=== PATIENT | male | born 1965 | race African-American/Black ===

== ENCOUNTER 2020-01-03 02:43 | Inpatient (IN) ==
[2020-01-03] MEDS ORDERED: SODIUM CHLORIDE 0.9% 1,000 ML IV STA (03:25)
[2020-01-03] MEDS ORDERED: NOREPINEPHRINE 4 MG/4 ML VIAL IV ONE (04:18)
[2020-01-03] MEDS ORDERED: MIDAZOLAM 10 MG/2 ML VIAL ONE (04:20)
[2020-01-03] MEDS: NOREPINEPHRINE 8 MG in SODIUM CHLORIDE 0.9% 242 ML IV PRN ×2 (04:23→11:21)
[2020-01-03] MEDS ORDERED: MIDAZOLAM 10 MG/2 ML VIAL IV STA (04:31)
[2020-01-03] MEDS ORDERED: MIDAZOLAM 100 MG in SODIUM CHLORIDE 0.9% 80 ML IV PRN (04:31)
[2020-01-03 05:12] LABS: Basophils % 0.1 % (0.0-0.8); Eosinophils % 0.2 % (0.00-10.9); Immature Granulocytes % 3.8 %; Immature Granulocytes Absolute 0.69 #; Lymphocytes # 2.7 10*3/uL (1.4-4.0); Lymphocytes % 14.8 % (21.2-54.2); Mean Corpuscular HGB Conc 22.9 GM/DL (32-36); Mean Corpuscular Volume 61.9 FL (87-102); Monocytes % 8.3 % (1.7-12.7); NRBC # 0.09 10*3/uL; Neutrophils % 72.8 % (38.7-73.9); Platelet Count 264 T/CUMM (130-400); Red Blood Count 1.13 MC/CUMM (3.8-5.5); Red Cell Distribution Width 33.2 % (9.3-17.3); White Blood Count 18.1 T/CUMM (4-12)
[2020-01-03 05:14] LABS: INR 1.4; PT Patient Result 14.6 SECS (9.8-11.9)
[2020-01-03 05:26] LABS: Apearance,Urine Slightly Hazy (Clear); Bacteria,Urine Occasional /HPF (Few); Bilirubin,Urine Negative (Negative); Blood, Urine Moderate mg/dL (Negative); Glucose,Urine (UA) Negative (Negative); Hyaline Casts,Urine 14 /LPF (0-3); Ketones,Urine 20 mg/dL (Negative); Mucus,Urine Occasional /LPF (Occasional); Nitrite,Urine Negative (Negative); Protein,Urine 100 MG/DL; RBC,Urine 1 /HPF (0-4); Urine Color Yellow (Yellow); Urine Specific Gravity 1.011 (1.001-1.035); Urine Urobilinogen < 2.0 EU/DL (0.2-1.0); WBC,Urine 3 /HPF (0-6)
[2020-01-03 05:33] LABS: Barbiturates Screen,Urine Negative (Negative); Benzodiazepines Screen,Urine Negative (Negative); Cannabinoid Screen,Urine Positive (Negative); Opiate Screen,Urine Negative (Negative); Phencyclidine Screen,Urine Negative (Negative)
[2020-01-03 05:34] LABS: Hemoglobin 1.6 GM/DL (14.0-18.0)
[2020-01-03] MEDS ORDERED: cefTRIAXone 1,000 MG in SODIUM CHLORIDE 0.9% 100 ML IV STA (05:37)
[2020-01-03 05:41] LABS: Alanine Aminotransferase 35 U/L (16-61); Alkaline Phosphatase 81 U/L (45-117); Aspartate Amino Transferase 80 U/L (0-37); Bilirubin,Total < 0.39 MG/DL (0.2-1.0); Blood Urea Nitrogen 16 MG/DL (7-18); Calcium 9.2 MG/DL (8.5-10.1); Estimated Glom Filtration Rate 47 ML/MIN; Glucose 90 MG/DL (74-106); Osmolality,Calculated 281.3 MOS/KG (273-304); Total Protein 6.4 G/DL (6.4-8.3)
[2020-01-03] MEDS ORDERED: ROCURONIUM 100 MG/10 ML VIAL IV ONE (05:45)
[2020-01-03] MEDS ORDERED: VANCOMYCIN INJ 1,000 MG in SODIUM CHLORIDE 0.9% 250 ML IV STA ×2 (05:55→05:58)
[2020-01-03] MEDS ORDERED: PIPERACILLIN/TAZOBACTAM 3,375 MG in SODIUM CHLORIDE 0.9% 100 ML IV STA (05:55)
[2020-01-03] MEDS ORDERED: SODIUM BICARBONATE 50 MEQ/50 ML VIAL IV STA ×2 (05:57)
[2020-01-03] MEDS ORDERED: ALBUTEROL 2.5 MG/3 ML NEB RESP TX PRN (06:04)
[2020-01-03 06:11] LABS: Allen Test Positive; Pt O2 Delivery Device Ventilator
[2020-01-03 06:12] LABS: ABG HCO3 6.8 MMOL/L (20-26); ABG Oxygen Saturation 99.2 % (95-100); ABG PCO2 24.7 MM HG (35-48); ABG PO2 472.7 MM HG (80-95); ABG TCO2 7.6 MMOL/L (23-27)
[2020-01-03] MEDS ORDERED: SODIUM CHLORIDE 0.9% 1,000 ML IV PRN ×2 (08:07→11:46)
[2020-01-03] MEDS: SODIUM BICARB INJ 150 MEQ in DEXTROSE 5% 850 ML IV SCH ×2 (08:42→17:10)
[2020-01-03] MEDS: PANTOPRAZOLE 40 MG VIAL IV SCH ×2 (08:50→18:27)
[2020-01-03 15:08] LABS: Hematocrit 21.2 VOL% (42.0-52.0); Hemoglobin 6.6 GM/DL (14.0-18.0)
[2020-01-03 15:52] LABS: Calcium 8.2 MG/DL (8.5-10.1); Osmolality,Calculated 288.5 MOS/KG (273-304)
[2020-01-03 17:42] LABS: Hematocrit 32.5 VOL% (42.0-52.0); Hemoglobin 10.7 GM/DL (14.0-18.0)
[2020-01-03 23:54] LABS: Hematocrit 21.9 VOL% (42.0-52.0); Hemoglobin 7.2 GM/DL (14.0-18.0)
[2020-01-04] MEDS: SODIUM BICARB INJ 150 MEQ in DEXTROSE 5% 850 ML IV SCH ×2 (01:02→07:15)
[2020-01-04 04:41] LABS: Allen Test Positive; Pt O2 Delivery Device Ventilator
[2020-01-04 04:42] LABS: ABG HCO3 32.8 MMOL/L (20-26); ABG Oxygen Saturation 99.9 % (95-100); ABG PCO2 34.6 MM HG (35-48); ABG TCO2 29.6 MMOL/L (23-27)
[2020-01-04 06:13] LABS: Basophils % 0.1 % (0.0-0.8); Hematocrit 22.3 VOL% (42.0-52.0); Hemoglobin 7.5 GM/DL (14.0-18.0); Immature Granulocytes % 1.2 %; Immature Granulocytes Absolute 0.28 #; Lymphocytes # 1.3 10*3/uL (1.4-4.0); Lymphocytes % 5.8 % (21.2-54.2); Mean Corpuscular HGB Conc 33.6 GM/DL (32-36); Mean Corpuscular Volume 76.1 FL (87-102); Monocytes % 8.1 % (1.7-12.7); NRBC # 0.17 10*3/uL; Neutrophils % 84.8 % (38.7-73.9); Platelet Count 252 T/CUMM (130-400); Red Blood Count 2.93 MC/CUMM (3.8-5.5); White Blood Count 22.7 T/CUMM (4-12)
[2020-01-04 06:18] LABS: INR 1.2; PT Patient Result 12.8 SECS (9.8-11.9)
[2020-01-04 06:32] LABS: Albumin 2.7 G/DL (3.4-5.0); Bilirubin,Total 0.7 MG/DL (0.2-1.0); Osmolality,Calculated 278.5 MOS/KG (273-304); Total Protein 6.2 G/DL (6.4-8.3)
[2020-01-04 06:34] LABS: Hypochromasia 2+; Platelet Estimate Adequate
[2020-01-04] MEDS: PANTOPRAZOLE 40 MG VIAL IV SCH ×2 (07:20→18:05)
[2020-01-04] MEDS: POTASSIUM CHLORIDE RIDER 10 MEQ in PREMIX 1 EACH IV PRN ×3 (09:11→13:40)
[2020-01-04 10:23] LABS: ABG Base Excess 10.5 MMOL/L (-2.5-2.5); ABG HCO3 32.9 MMOL/L (20-26); ABG Oxygen Saturation 95.6 % (95-100); ABG PCO2 34.8 MM HG (35-48); ABG PO2 75.7 MM HG (80-95)
[2020-01-04 10:24] LABS: ABG PH 7.594 (7.35-7.45)
[2020-01-04] MEDS: DEXTROSE 5% NACL 0.45% 1,000 ML IV SCH ×2 (11:38→23:19)
[2020-01-05] MEDS: DEXTROSE 5% NACL 0.45% 1,000 ML IV SCH ×2 (00:01→14:03)
[2020-01-05 03:10] LABS: Allen Test Positive
[2020-01-05 03:11] LABS: ABG Base Excess 4.3 MMOL/L (-2.5-2.5); ABG HCO3 28.1 MMOL/L (20-26); ABG Oxygen Saturation 83.8 % (95-100); ABG PCO2 28.2 MM HG (35-48); ABG PH 7.574 (7.35-7.45); ABG PO2 45.7 MM HG (80-95); ABG TCO2 24.3 MMOL/L (23-27)
[2020-01-05 04:19] LABS: Basophils # 0.1 10*3/uL (0.0-0.2); Basophils % 0.2 % (0.0-0.8); Hematocrit 24.6 VOL% (42.0-52.0); Hemoglobin 7.9 GM/DL (14.0-18.0); Immature Granulocytes % 1.1 %; Immature Granulocytes Absolute 0.28 #; Lymphocytes # 1.6 10*3/uL (1.4-4.0); Lymphocytes % 6.4 % (21.2-54.2); Mean Corpuscular HGB Conc 32.1 GM/DL (32-36); Mean Corpuscular Volume 77.1 FL (87-102); Monocytes % 10.4 % (1.7-12.7); NRBC # 0.11 10*3/uL; Neutrophils % 81.9 % (38.7-73.9); Platelet Count 376 T/CUMM (130-400); Red Blood Count 3.19 MC/CUMM (3.8-5.5); White Blood Count 24.6 T/CUMM (4-12)
[2020-01-05 04:46] LABS: Calcium 8.2 MG/DL (8.5-10.1); Osmolality,Calculated 268.8 MOS/KG (273-304)
[2020-01-05 05:12] LABS: Lymphocytes 6 % (20-55); Total Cells Counted 100
[2020-01-05 05:13] LABS: Elliptocytes 1+; Hypochromasia 3+; Ovalocytes 2+; Platelet Estimate Normal; Segmented Neutrophils 86 % (50-85); Target Cells 2+
[2020-01-05 05:15] LABS: Anisocytosis 2+; Microcytosis 2+
[2020-01-05] MEDS ORDERED: POTASSIUM CHLORIDE RIDER 10 MEQ in PREMIX 1 EACH IV PRN (05:25)
[2020-01-05] MEDS: POTASSIUM CHLORIDE RIDER 20 MEQ in PREMIX 1 EACH IV PRN ×3 (05:43→07:03)
[2020-01-05] MEDS: PANTOPRAZOLE 40 MG VIAL IV SCH ×2 (05:47→18:00)
[2020-01-05] MEDS ORDERED: AZITHROMYCIN 250 MG TABLET PO ONE (07:44)
[2020-01-05] MEDS: POTASSIUM CHLORIDE 20 MEQ TABLET PO SCH ×3 (10:13→21:27)
[2020-01-05] MEDS: cefTRIAXone 1,000 MG in SYRINGE 1 EACH IV SCH (10:15)
[2020-01-05] MEDS: amLODIPine 5 MG TABLET PO SCH (10:17)
[2020-01-05] MEDS: TAMSULOSIN 0.4 MG CAPSULE PO SCH ×2 (10:18→21:28)
[2020-01-05] MEDS ORDERED: CLORAZEPATE 3.75 MG TABLET PO SCH (10:30)
[2020-01-05] MEDS ORDERED: HALOPERIDOL 5 MG TABLET PO PRN (10:31)
[2020-01-05] MEDS: chlordiazePOXIDE 10 MG CAPSULE PO SCH ×2 (11:39→18:00)
[2020-01-05] MEDS: THIAMINE 100 MG TABLET PO SCH (14:43)
[2020-01-05 15:25] LABS: Folate 14.6 NG/ML (5.4-24.0)
[2020-01-05] MEDS: FOLIC ACID 1 MG TABLET PO SCH (21:28)
[2020-01-06] MEDS: POTASSIUM CHLORIDE 20 MEQ TABLET PO SCH (02:41)
[2020-01-06] MEDS: chlordiazePOXIDE 10 MG CAPSULE PO SCH ×3 (02:41→18:04)
[2020-01-06 05:10] LABS: Basophils % 0.1 % (0.0-0.8); Eosinophils % 0.1 % (0.00-10.9); Hematocrit 24.2 VOL% (42.0-52.0); Hemoglobin 7.8 GM/DL (14.0-18.0); Immature Granulocytes % 1.1 %; Immature Granulocytes Absolute 0.25 #; Lymphocytes # 1.3 10*3/uL (1.4-4.0); Lymphocytes % 5.7 % (21.2-54.2); Mean Corpuscular HGB Conc 32.2 GM/DL (32-36); Mean Corpuscular Volume 77.1 FL (87-102); Mean Platelet Volume 9.2 FL (9.6-12.0); Monocytes % 10.1 % (1.7-12.7); NRBC # 0.11 10*3/uL; Neutrophils % 82.9 % (38.7-73.9); Platelet Count 416 T/CUMM (130-400); Red Blood Count 3.14 MC/CUMM (3.8-5.5); White Blood Count 21.8 T/CUMM (4-12)
[2020-01-06 05:29] LABS: Albumin 2.1 G/DL (3.4-5.0); Bilirubin,Total 0.5 MG/DL (0.2-1.0); Osmolality,Calculated 270.8 MOS/KG (273-304); Total Protein 5.7 G/DL (6.4-8.3)
[2020-01-06 05:31] LABS: Hypochromasia 1+; Lymphocytes 1 % (20-55); Microcytosis Slight; Nucleated Red Blood Cells 1 (0-5); Platelet Estimate Adequate; Segmented Neutrophils 87 % (50-85); Total Cells Counted 100
[2020-01-06] MEDS: PANTOPRAZOLE 40 MG VIAL IV SCH ×2 (05:51→18:00)
[2020-01-06] MEDS: DEXTROSE 5% NACL 0.45% 1,000 ML IV SCH ×3 (05:54→23:25)
[2020-01-06] MEDS: cefTRIAXone 1,000 MG in SYRINGE 1 EACH IV SCH (08:41)
[2020-01-06] MEDS: amLODIPine 5 MG TABLET PO SCH (08:41)
[2020-01-06] MEDS: THIAMINE 100 MG TABLET PO SCH (08:41)
[2020-01-06] MEDS: TAMSULOSIN 0.4 MG CAPSULE PO SCH ×2 (08:41→23:02)
[2020-01-06] MEDS ORDERED: AZITHROMYCIN 250 MG TABLET PO SCH (09:00)
[2020-01-06] MEDS ORDERED: FUROSEMIDE 40 MG/4 ML VIAL IV ONE (14:45)
[2020-01-06] MEDS: PIPERACILLIN/TAZOBACTAM 3,375 MG in SODIUM CHLORIDE 0.9% 100 ML IV SCH ×2 (15:30→23:39)
[2020-01-06] MEDS: VANCOMYCIN INJ 1,000 MG in SODIUM CHLORIDE 0.9% 250 ML IV SCH (20:41)
[2020-01-06] MEDS: FOLIC ACID 1 MG TABLET PO SCH (23:02)
[2020-01-06] MEDS ORDERED: ACETAMINOPHEN 325 MG TABLET PO PRN (23:11)
[2020-01-07] MEDS: chlordiazePOXIDE 10 MG CAPSULE PO SCH ×3 (03:23→21:49)
[2020-01-07] MEDS: DEXTROSE 5% NACL 0.45% 1,000 ML IV SCH ×2 (05:51→23:01)
[2020-01-07 06:59] LABS: Basophils # 0.1 10*3/uL (0.0-0.2); Basophils % 0.2 % (0.0-0.8); Eosinophils # 0.3 10*3/uL (0.0-0.87); Eosinophils % 1.2 % (0.00-10.9); Hematocrit 25.9 VOL% (42.0-52.0); Lymphocytes # 1.6 10*3/uL (1.4-4.0); Lymphocytes % 7.6 % (21.2-54.2); Mean Corpuscular HGB Conc 30.9 GM/DL (32-36); Mean Platelet Volume 9.4 FL (9.6-12.0); Monocytes % 12.5 % (1.7-12.7); NRBC # 0.12 10*3/uL; Neutrophils % 77.5 % (38.7-73.9); Platelet Count 474 T/CUMM (130-400); Red Blood Count 3.28 MC/CUMM (3.8-5.5); White Blood Count 20.7 T/CUMM (4-12)
[2020-01-07 07:30] LABS: Calcium 7.6 MG/DL (8.5-10.1); Osmolality,Calculated 272.7 MOS/KG (273-304)
[2020-01-07] MEDS: PANTOPRAZOLE 40 MG VIAL IV SCH ×2 (08:14→18:10)
[2020-01-07] MEDS: LACTATED RINGERS 1,000 ML IV SCH (08:20)
[2020-01-07] MEDS: amLODIPine 5 MG TABLET PO SCH (09:57)
[2020-01-07] MEDS: THIAMINE 100 MG TABLET PO SCH (09:57)
[2020-01-07] MEDS: TAMSULOSIN 0.4 MG CAPSULE PO SCH ×2 (09:57→21:49)
[2020-01-07] MEDS: PIPERACILLIN/TAZOBACTAM 3,375 MG in SODIUM CHLORIDE 0.9% 100 ML IV SCH ×2 (10:00→16:09)
[2020-01-07] MEDS: VANCOMYCIN INJ 1,000 MG in SODIUM CHLORIDE 0.9% 250 ML IV SCH ×2 (10:00→21:53)
[2020-01-07] MEDS: POTASSIUM CHLORIDE 20 MEQ TABLET PO PRN ×3 (10:02→16:39)
[2020-01-07 12:50] LABS: Eosinophils 1 % (0-10); Hypochromasia 3+; Lymphocytes 9 % (20-55); Nucleated Red Blood Cells 1 (0-5); Segmented Neutrophils 78 % (50-85); Total Cells Counted 100
[2020-01-07 12:51] LABS: Elliptocytes 1+; Microcytosis 2+; Platelet Estimate Adequate; Tear Drop Cells Few
[2020-01-07] MEDS ORDERED: LEVALBUTEROL 0.31 MG/3 ML NEB RESP TX ONE (19:50)
[2020-01-07] MEDS ORDERED: LEVALBUTEROL 1.25 MG/3 ML NEB RESP TX ONE (19:52)
[2020-01-07 20:14] LABS: ABG Base Excess -1.9 MMOL/L (-2.5-2.5); ABG HCO3 22.6 MMOL/L (20-26); ABG Oxygen Saturation 87.1 % (95-100); ABG PCO2 31.7 MM HG (35-48); ABG PH 7.441 (7.35-7.45); ABG PO2 53.9 MM HG (80-95); Allen Test Positive
[2020-01-07 20:22] LABS: Basophils % 0.1 % (0.0-0.8); Eosinophils # 0.1 10*3/uL (0.0-0.87); Eosinophils % 0.4 % (0.00-10.9); Hematocrit 26.4 VOL% (42.0-52.0); Hemoglobin 8.4 GM/DL (14.0-18.0); Immature Granulocytes % 1.1 %; Immature Granulocytes Absolute 0.31 #; Lymphocytes # 0.8 10*3/uL (1.4-4.0); Lymphocytes % 2.8 % (21.2-54.2); Mean Corpuscular HGB Conc 31.8 GM/DL (32-36); Mean Corpuscular Volume 78.3 FL (87-102); Mean Platelet Volume 9.5 FL (9.6-12.0); Monocytes % 10.7 % (1.7-12.7); NRBC # 0.14 10*3/uL; Neutrophils % 84.9 % (38.7-73.9); Platelet Count 517 T/CUMM (130-400); Red Blood Count 3.37 MC/CUMM (3.8-5.5); White Blood Count 28.2 T/CUMM (4-12)
[2020-01-07 20:50] LABS: Hypersegmented Neutrophil SLIGHT; Hypochromasia 2+; Lymphocytes 3 % (20-55); Segmented Neutrophils 91 % (50-85); Target Cells Few; Total Cells Counted 100
[2020-01-07 20:51] LABS: Macrocytosis 1+; Microcytosis 1+; Tear Drop Cells Few
[2020-01-07 21:24] LABS: Calcium 7.7 MG/DL (8.5-10.1); Osmolality,Calculated 276.7 MOS/KG (273-304)
[2020-01-07] MEDS: FOLIC ACID 1 MG TABLET PO SCH (21:49)
[2020-01-08] MEDS: PIPERACILLIN/TAZOBACTAM 3,375 MG in SODIUM CHLORIDE 0.9% 100 ML IV SCH ×3 (00:30→17:40)
[2020-01-08] MEDS: chlordiazePOXIDE 10 MG CAPSULE PO SCH ×2 (04:17→10:18)
[2020-01-08] MEDS: PANTOPRAZOLE 40 MG VIAL IV SCH ×2 (05:51→17:40)
[2020-01-08 08:31] LABS: Basophils # 0.1 10*3/uL (0.0-0.2); Basophils % 0.2 % (0.0-0.8); Eosinophils # 0.2 10*3/uL (0.0-0.87); Eosinophils % 0.7 % (0.00-10.9); Hematocrit 25.6 VOL% (42.0-52.0); Hemoglobin 8.3 GM/DL (14.0-18.0); Immature Granulocytes Absolute 0.27 #; Lymphocytes # 0.9 10*3/uL (1.4-4.0); Lymphocytes % 3.1 % (21.2-54.2); Mean Corpuscular HGB Conc 32.4 GM/DL (32-36); Mean Corpuscular Volume 76.4 FL (87-102); Mean Platelet Volume 9.4 FL (9.6-12.0); Monocytes % 10.2 % (1.7-12.7); NRBC # 0.09 10*3/uL; Neutrophils % 84.8 % (38.7-73.9); Platelet Count 493 T/CUMM (130-400); Red Blood Count 3.35 MC/CUMM (3.8-5.5)
[2020-01-08 09:02] LABS: Albumin 1.8 G/DL (3.4-5.0); Bilirubin,Total 0.4 MG/DL (0.2-1.0); Calcium 7.9 MG/DL (8.5-10.1); Osmolality,Calculated 274.5 MOS/KG (273-304)
[2020-01-08] MEDS: FUROSEMIDE 40 MG/4 ML VIAL IV SCH (09:26)
[2020-01-08] MEDS: TAMSULOSIN 0.4 MG CAPSULE PO SCH (10:17)
[2020-01-08] MEDS: amLODIPine 5 MG TABLET PO SCH (10:17)
[2020-01-08] MEDS: THIAMINE 100 MG TABLET PO SCH (10:18)
[2020-01-08] MEDS: VANCOMYCIN INJ 1,000 MG in SODIUM CHLORIDE 0.9% 250 ML IV SCH (10:22)
[2020-01-08 14:05] LABS: Total Protein 6.6 G/DL (6.4-8.3)
[2020-01-08 14:12] LABS: Lymphocytes 5 % (20-55); Segmented Neutrophils 84 % (50-85); Total Cells Counted 100
[2020-01-08 14:13] LABS: Burr Cells Few; Hypochromasia 4+; Microcytosis 3+; Platelet Estimate Increased; Polychromasia Slight; Target Cells Few
[2020-01-08] MEDS ORDERED: MORPHINE 4 MG/1 ML VIAL IV PRN (17:24)
[2020-01-08] MEDS ORDERED: ETOMIDATE 20 MG/10 ML VIAL IV ONE ×2 (18:08→18:14)
[2020-01-08] MEDS ORDERED: SUCCINYLCHOLINE 200 MG/10 ML VIAL ONE (18:09)
[2020-01-08] MEDS ORDERED: SUCCINYLCHOLINE 200 MG/10 ML VIAL IV ONE (18:15)
[2020-01-08] MEDS: MIDAZOLAM 100 MG in SODIUM CHLORIDE 0.9% 80 ML IV PRN (19:04)
[2020-01-08] MEDS: fentaNYL INJ 1,250 MCG in SODIUM CHLORIDE 0.9% 225 ML IV PRN (19:04)
[2020-01-08 19:37] LABS: ABG Base Excess -0.1 MMOL/L (-2.5-2.5); ABG HCO3 24.4 MMOL/L (20-26); ABG Oxygen Saturation 98.7 % (95-100); ABG PH 7.414 (7.35-7.45); ABG TCO2 25.6 MMOL/L (23-27); Allen Test Positive; Pt O2 Delivery Device Ventilator
[2020-01-08] MEDS ORDERED: FUROSEMIDE 40 MG/4 ML VIAL IV ONE (21:00)
[2020-01-08] MEDS: FOLIC ACID 1 MG TABLET PO SCH (21:25)
[2020-01-08] MEDS: VANCOMYCIN INJ 1,250 MG in SODIUM CHLORIDE 0.9% 250 ML IV SCH (21:26)
[2020-01-09] MEDS: PIPERACILLIN/TAZOBACTAM 3,375 MG in SODIUM CHLORIDE 0.9% 100 ML IV SCH ×3 (01:25→18:21)
[2020-01-09 04:45] LABS: ABG Base Excess 2.7 MMOL/L (-2.5-2.5); ABG HCO3 26.8 MMOL/L (20-26); ABG Oxygen Saturation 99.9 % (95-100); ABG TCO2 23.5 MMOL/L (23-27); Allen Test Positive; Pt O2 Delivery Device Ventilator
[2020-01-09 05:06] LABS: Basophils # 0.1 10*3/uL (0.0-0.2); Basophils % 0.2 % (0.0-0.8); Eosinophils # 0.7 10*3/uL (0.0-0.87); Eosinophils % 3.5 % (0.00-10.9); Hematocrit 24.5 VOL% (42.0-52.0); Hemoglobin 7.7 GM/DL (14.0-18.0); Immature Granulocytes % 0.8 %; Immature Granulocytes Absolute 0.17 #; Lymphocytes # 1.1 10*3/uL (1.4-4.0); Lymphocytes % 5.2 % (21.2-54.2); Mean Corpuscular HGB Conc 31.4 GM/DL (32-36); Mean Corpuscular Volume 77.5 FL (87-102); Mean Platelet Volume 9.5 FL (9.6-12.0); Monocytes % 7.9 % (1.7-12.7); NRBC # 0.06 10*3/uL; Neutrophils % 82.4 % (38.7-73.9); Platelet Count 490 T/CUMM (130-400); Red Blood Count 3.16 MC/CUMM (3.8-5.5); White Blood Count 21.1 T/CUMM (4-12)
[2020-01-09 05:25] LABS: Band Neutrophils 1 % (0-10); Eosinophils 3 % (0-10); Hypersegmented Neutrophil SLIGHT; Hypochromasia 1+; Lymphocytes 2 % (20-55); Segmented Neutrophils 82 % (50-85); Total Cells Counted 100
[2020-01-09 05:26] LABS: Acanthocytes Few; Microcytosis 2+; Polychromasia Slight
[2020-01-09 05:27] LABS: Anisocytosis 2+; Platelet Estimate Increased
[2020-01-09 05:37] LABS: Albumin 1.7 G/DL (3.4-5.0); Bilirubin,Total 0.6 MG/DL (0.2-1.0); Calcium 8.4 MG/DL (8.5-10.1); Osmolality,Calculated 279.3 MOS/KG (273-304); Total Protein 6.3 G/DL (6.4-8.3)
[2020-01-09] MEDS: PANTOPRAZOLE 40 MG VIAL IV SCH ×2 (05:40→18:30)
[2020-01-09] MEDS: POTASSIUM CHLORIDE 20 MEQ TABLET PO PRN (06:51)
[2020-01-09] MEDS: FUROSEMIDE 40 MG/4 ML VIAL IV SCH (08:23)
[2020-01-09] MEDS: THIAMINE 100 MG TABLET PO SCH (08:23)
[2020-01-09 10:38] LABS: Osmolality,Calculated 279.3 MOS/KG (273-304)
[2020-01-09] MEDS: VANCOMYCIN INJ 1,250 MG in SODIUM CHLORIDE 0.9% 250 ML IV SCH ×2 (11:17→22:50)
[2020-01-09] MEDS: POTASSIUM CHLORIDE 20 MEQ/15 ML UDCUP PO PRN ×3 (14:30→18:30)
[2020-01-09] MEDS: FOLIC ACID 1 MG TABLET PO SCH (23:12)
[2020-01-10] MEDS: PIPERACILLIN/TAZOBACTAM 3,375 MG in SODIUM CHLORIDE 0.9% 100 ML IV SCH ×3 (02:46→19:29)
[2020-01-10 04:18] LABS: ABG Base Excess 3.9 MMOL/L (-2.5-2.5); ABG HCO3 27.9 MMOL/L (20-26); ABG Oxygen Saturation 98.7 % (95-100); ABG PCO2 41.5 MM HG (35-48); ABG PH 7.442 (7.35-7.45); ABG TCO2 26.6 MMOL/L (23-27); Allen Test Positive; Pt O2 Delivery Device Ventilator
[2020-01-10] MEDS: POTASSIUM CHLORIDE 20 MEQ/15 ML UDCUP PO PRN ×4 (05:29→18:30)
[2020-01-10 05:49] LABS: Calcium 9.3 MG/DL (8.5-10.1)
[2020-01-10] MEDS: PANTOPRAZOLE 40 MG VIAL IV SCH ×2 (05:50→19:30)
[2020-01-10 05:56] LABS: Immunoglobulin A (Chem) 253 MG/DL (70-400); Immunoglobulin G (Chem) 808 MG/DL (700-1600); Immunoglobulin M (Chem) 38 MG/DL (40-230); Total Protein (Chem) 6.6 G/DL (6.4-8.3)
[2020-01-10] MEDS: MIDAZOLAM 100 MG in SODIUM CHLORIDE 0.9% 80 ML IV PRN (06:31)
[2020-01-10 07:42] LABS: Basophils # 0.1 10*3/uL (0.0-0.2); Basophils % 0.3 % (0.0-0.8); Eosinophils % 5.7 % (0.00-10.9); Hematocrit 23.8 VOL% (42.0-52.0); Hemoglobin 7.2 GM/DL (14.0-18.0); Immature Granulocytes % 0.6 %; Immature Granulocytes Absolute 0.11 #; Lymphocytes % 5.6 % (21.2-54.2); Mean Corpuscular HGB Conc 30.3 GM/DL (32-36); Mean Corpuscular Volume 79.9 FL (87-102); Mean Platelet Volume 9.8 FL (9.6-12.0); Monocytes % 9.5 % (1.7-12.7); NRBC # 0.03 10*3/uL; Neutrophils % 78.3 % (38.7-73.9); Platelet Count 464 T/CUMM (130-400); Red Blood Count 2.98 MC/CUMM (3.8-5.5); White Blood Count 17.3 T/CUMM (4-12)
[2020-01-10 07:57] LABS: Albumin 1.7 G/DL (3.4-5.0); Bilirubin,Total 0.4 MG/DL (0.2-1.0); Calcium 9.3 MG/DL (8.5-10.1); Osmolality,Calculated 284.3 MOS/KG (273-304); Total Protein 6.5 G/DL (6.4-8.3)
[2020-01-10 08:01] LABS: Hypochromasia 2+; Microcytosis Slight; Platelet Estimate Increased
[2020-01-10 08:55] LABS: Albumin (SPE) Rel % 45.8 %; Alpha 1 (SPE) 0.5 G/DL (0.1-0.4); Alpha 1 (SPE) Rel % 7.6 %; Alpha 2 (SPE) 1.4 G/DL (0.4-1.0); Alpha 2 (SPE) Rel % 20.7 %; Beta (SPE) Rel % 14.5 %; Gamma (SPE) 0.8 G/DL (0.7-1.7)
[2020-01-10 08:58] LABS: Gamma (SPE) Rel % 11.4 %
[2020-01-10] MEDS: THIAMINE 100 MG TABLET PO SCH (09:25)
[2020-01-10] MEDS: FUROSEMIDE 40 MG/4 ML VIAL IV SCH (09:26)
[2020-01-10] MEDS ORDERED: HEPARIN 5,000 UNIT/1 ML VIAL ONE (11:52)
[2020-01-10] MEDS: fentaNYL INJ 1,250 MCG in SODIUM CHLORIDE 0.9% 225 ML IV PRN (14:01)
[2020-01-10] MEDS ORDERED: VANCOMYCIN INJ 1,250 MG in SODIUM CHLORIDE 0.9% 250 ML IV SCH (16:00)
[2020-01-10] MEDS: VANCOMYCIN INJ 1,250 MG in SODIUM CHLORIDE 0.9% 250 ML IV SCH (20:01)
[2020-01-10] MEDS: FOLIC ACID 1 MG TABLET PO SCH (21:50)
[2020-01-11] MEDS: PIPERACILLIN/TAZOBACTAM 3,375 MG in SODIUM CHLORIDE 0.9% 100 ML IV SCH (02:42)
[2020-01-11 03:27] LABS: ABG Base Excess 4.9 MMOL/L (-2.5-2.5); ABG HCO3 28.9 MMOL/L (20-26); ABG Oxygen Saturation 99.5 % (95-100); ABG PCO2 44.3 MM HG (35-48); ABG PH 7.433 (7.35-7.45); ABG TCO2 27.8 MMOL/L (23-27); Allen Test Positive; Pt O2 Delivery Device Ventilator
[2020-01-11 04:27] LABS: Basophils # 0.1 10*3/uL (0.0-0.2); Basophils % 0.4 % (0.0-0.8); Eosinophils # 0.9 10*3/uL (0.0-0.87); Eosinophils % 6.4 % (0.00-10.9); Hematocrit 23.5 VOL% (42.0-52.0); Hemoglobin 7.1 GM/DL (14.0-18.0); Immature Granulocytes % 0.7 %; Lymphocytes % 7.3 % (21.2-54.2); Mean Corpuscular HGB Conc 30.2 GM/DL (32-36); Mean Corpuscular Volume 80.2 FL (87-102); Monocytes % 10.9 % (1.7-12.7); NRBC # 0.02 10*3/uL; Neutrophils % 74.3 % (38.7-73.9); Platelet Count 391 T/CUMM (130-400); Red Blood Count 2.93 MC/CUMM (3.8-5.5); White Blood Count 13.9 T/CUMM (4-12)
[2020-01-11 04:44] LABS: Hypochromasia 2+
[2020-01-11 04:45] LABS: Platelet Estimate Adequate
[2020-01-11 04:46] LABS: Microcytosis Slight
[2020-01-11 04:48] LABS: Albumin 1.7 G/DL (3.4-5.0); Bilirubin,Total 1.2 MG/DL (0.2-1.0); Calcium 9.7 MG/DL (8.5-10.1); Osmolality,Calculated 292.7 MOS/KG (273-304); Total Protein 6.7 G/DL (6.4-8.3)
[2020-01-11] MEDS: PANTOPRAZOLE 40 MG VIAL IV SCH ×2 (05:35→18:24)
[2020-01-11] MEDS ORDERED: LACTATED RINGERS 1,000 ML IV SCH (08:00)
[2020-01-11] MEDS: FUROSEMIDE 40 MG/4 ML VIAL IV SCH (09:18)
[2020-01-11] MEDS: THIAMINE 100 MG TABLET PO SCH (09:18)
[2020-01-11] MEDS: MEROPENEM 500 MG in SODIUM CHLORIDE 0.9% 100 ML IV SCH ×2 (09:41→16:06)
[2020-01-11] MEDS: fentaNYL INJ 1,250 MCG in SODIUM CHLORIDE 0.9% 225 ML IV PRN (11:51)
[2020-01-11] MEDS: FOLIC ACID 1 MG TABLET PO SCH (20:18)
[2020-01-11] MEDS: MIDAZOLAM 100 MG in SODIUM CHLORIDE 0.9% 80 ML IV PRN (23:17)
[2020-01-12] MEDS: fentaNYL INJ 1,250 MCG in SODIUM CHLORIDE 0.9% 225 ML IV PRN (01:16)
[2020-01-12] MEDS: MEROPENEM 500 MG in SODIUM CHLORIDE 0.9% 100 ML IV SCH ×3 (01:21→17:31)
[2020-01-12 04:33] LABS: ABG Base Excess 6.7 MMOL/L (-2.5-2.5); ABG HCO3 30.5 MMOL/L (20-26); ABG Oxygen Saturation 99.6 % (95-100); ABG PCO2 44.5 MM HG (35-48); ABG PH 7.455 (7.35-7.45); ABG TCO2 29.5 MMOL/L (23-27); Allen Test Positive; Pt O2 Delivery Device Ventilator
[2020-01-12 04:49] LABS: Basophils # 0.1 10*3/uL (0.0-0.2); Basophils % 0.4 % (0.0-0.8); Eosinophils # 0.6 10*3/uL (0.0-0.87); Eosinophils % 4.1 % (0.00-10.9); Hematocrit 22.6 VOL% (42.0-52.0); Hemoglobin 6.9 GM/DL (14.0-18.0); Immature Granulocytes % 0.8 %; Immature Granulocytes Absolute 0.11 #; Lymphocytes # 1.4 10*3/uL (1.4-4.0); Lymphocytes % 9.8 % (21.2-54.2); Mean Corpuscular HGB Conc 30.5 GM/DL (32-36); Mean Corpuscular Volume 79.6 FL (87-102); Monocytes % 10.9 % (1.7-12.7); NRBC # 0.02 10*3/uL; Platelet Count 360 T/CUMM (130-400); Red Blood Count 2.84 MC/CUMM (3.8-5.5); White Blood Count 14.3 T/CUMM (4-12)
[2020-01-12 05:21] LABS: Hypochromasia 2+; Microcytosis 1+
[2020-01-12 05:22] LABS: Anisocytosis 1+; Polychromasia Slight; Target Cells Few
[2020-01-12 05:23] LABS: Platelet Estimate Normal
[2020-01-12 05:28] LABS: Albumin 1.6 G/DL (3.4-5.0); Bilirubin,Total 0.6 MG/DL (0.2-1.0); Calcium 9.2 MG/DL (8.5-10.1); Osmolality,Calculated 299.4 MOS/KG (273-304); Total Protein 6.5 G/DL (6.4-8.3)
[2020-01-12] MEDS: PANTOPRAZOLE 40 MG VIAL IV SCH ×2 (05:36→17:32)
[2020-01-12 05:37] LABS: Calcium 8.7 MG/DL (8.5-10.1); Osmolality,Calculated 300.3 MOS/KG (273-304)
[2020-01-12] MEDS: POTASSIUM CHLORIDE 20 MEQ/15 ML UDCUP PO PRN ×2 (05:40→08:28)
[2020-01-12] MEDS: FUROSEMIDE 40 MG/4 ML VIAL IV SCH (08:28)
[2020-01-12] MEDS: THIAMINE 100 MG TABLET PO SCH (08:32)
[2020-01-12] MEDS: POTASSIUM CHLORIDE 20 MEQ/15 ML UDCUP PER TUBE SCH ×3 (10:08→17:33)
[2020-01-12] MEDS: FUROSEMIDE 40 MG/5 ML UDCUP PER TUBE SCH (10:33)
[2020-01-12] MEDS: FOLIC ACID 1 MG TABLET PO SCH (20:24)
[2020-01-12 23:16] LABS: Hematocrit 32.7 VOL% (42.0-52.0); Hemoglobin 10.2 GM/DL (14.0-18.0)
[2020-01-13] MEDS: MEROPENEM 500 MG in SODIUM CHLORIDE 0.9% 100 ML IV SCH ×3 (02:44→16:13)
[2020-01-13 04:42] LABS: ABG HCO3 29.9 MMOL/L (20-26); ABG PCO2 44.3 MM HG (35-48); ABG PH 7.449 (7.35-7.45); ABG TCO2 27.8 MMOL/L (23-27)
[2020-01-13 04:49] LABS: Basophils # 0.1 10*3/uL (0.0-0.2); Basophils % 0.5 % (0.0-0.8); Eosinophils # 0.3 10*3/uL (0.0-0.87); Eosinophils % 1.8 % (0.00-10.9); Hematocrit 33.6 VOL% (42.0-52.0); Hemoglobin 10.5 GM/DL (14.0-18.0); Immature Granulocytes Absolute 0.18 #; Lymphocytes # 1.5 10*3/uL (1.4-4.0); Lymphocytes % 8.2 % (21.2-54.2); Mean Corpuscular HGB Conc 31.3 GM/DL (32-36); Monocytes % 9.7 % (1.7-12.7); Neutrophils % 78.8 % (38.7-73.9); Platelet Count 373 T/CUMM (130-400); White Blood Count 18.2 T/CUMM (4-12)
[2020-01-13 05:04] LABS: Albumin 2.2 G/DL (3.4-5.0); Bilirubin,Total 0.8 MG/DL (0.2-1.0); Total Protein 7.9 G/DL (6.4-8.3)
[2020-01-13 06:14] LABS: Platelet Estimate Normal
[2020-01-13 06:15] LABS: Anisocytosis 2+; Hypochromasia 1+; Target Cells Few
[2020-01-13 06:16] LABS: Basophilic Stippling Slight; Poikilocytosis Slight; Polychromasia Slight
[2020-01-13] MEDS: PANTOPRAZOLE 40 MG VIAL IV SCH ×2 (06:22→18:09)
[2020-01-13] MEDS: FUROSEMIDE 40 MG/5 ML UDCUP PER TUBE SCH ×2 (08:58→09:36)
[2020-01-13] MEDS: THIAMINE 100 MG TABLET PO SCH ×2 (08:58→09:36)
[2020-01-13] MEDS: FOLIC ACID 1 MG TABLET PO SCH (21:44)
[2020-01-14] MEDS: MEROPENEM 500 MG in SODIUM CHLORIDE 0.9% 100 ML IV SCH ×3 (01:38→16:43)
[2020-01-14 01:54] LABS: Basophils # 0.1 10*3/uL (0.0-0.2); Basophils % 0.5 % (0.0-0.8); Eosinophils # 0.3 10*3/uL (0.0-0.87); Eosinophils % 1.4 % (0.00-10.9); Hematocrit 35.5 VOL% (42.0-52.0); Hemoglobin 10.8 GM/DL (14.0-18.0); Immature Granulocytes % 1.2 %; Immature Granulocytes Absolute 0.22 #; Lymphocytes # 1.9 10*3/uL (1.4-4.0); Mean Corpuscular HGB Conc 30.4 GM/DL (32-36); Mean Corpuscular Volume 84.5 FL (87-102); Monocytes % 8.9 % (1.7-12.7); Platelet Count 383 T/CUMM (130-400); Red Cell Distribution Width 27.4 % (9.3-17.3); White Blood Count 18.9 T/CUMM (4-12)
[2020-01-14 02:13] LABS: Alanine Aminotransferase 22 U/L (16-61); Albumin 2.2 G/DL (3.4-5.0); Alkaline Phosphatase 119 U/L (45-117); Aspartate Amino Transferase 43 U/L (0-37); Bilirubin,Total < 0.39 MG/DL (0.2-1.0); Blood Urea Nitrogen 35 MG/DL (7-18); Calcium 9.6 MG/DL (8.5-10.1); Estimated Glom Filtration Rate 38 ML/MIN; Glucose 96 MG/DL (74-106); Osmolality,Calculated 303.1 MOS/KG (273-304); Total Protein 7.7 G/DL (6.4-8.3)
[2020-01-14] MEDS: PANTOPRAZOLE 40 MG VIAL IV SCH (06:38)
[2020-01-14] MEDS: THIAMINE 100 MG TABLET PO SCH (09:33)
[2020-01-14] MEDS: FUROSEMIDE 40 MG/5 ML UDCUP PER TUBE SCH (09:34)
[2020-01-14] MEDS: DEXTROSE 5% NACL 0.45% 1,000 ML IV SCH ×2 (11:53→22:06)
[2020-01-14] MEDS: FOLIC ACID 1 MG TABLET PO SCH (22:06)
[2020-01-15] MEDS: MEROPENEM 500 MG in SODIUM CHLORIDE 0.9% 100 ML IV SCH ×3 (01:08→16:52)
[2020-01-15 01:37] LABS: Basophils # 0.1 10*3/uL (0.0-0.2); Basophils % 0.5 % (0.0-0.8); Eosinophils # 0.4 10*3/uL (0.0-0.87); Eosinophils % 2.8 % (0.00-10.9); Hematocrit 34.7 VOL% (42.0-52.0); Hemoglobin 10.7 GM/DL (14.0-18.0); Immature Granulocytes Absolute 0.15 #; Lymphocytes # 1.9 10*3/uL (1.4-4.0); Lymphocytes % 12.3 % (21.2-54.2); Mean Corpuscular HGB Conc 30.8 GM/DL (32-36); Monocytes % 9.8 % (1.7-12.7); Neutrophils % 73.6 % (38.7-73.9); Platelet Count 355 T/CUMM (130-400); Red Blood Count 4.13 MC/CUMM (3.8-5.5); Red Cell Distribution Width 27.1 % (9.3-17.3); White Blood Count 15.1 T/CUMM (4-12)
[2020-01-15 02:07] LABS: Alanine Aminotransferase 24 U/L (16-61); Albumin 2.1 G/DL (3.4-5.0); Alkaline Phosphatase 104 U/L (45-117); Aspartate Amino Transferase 39 U/L (0-37); Bilirubin,Total < 0.39 MG/DL (0.2-1.0); Blood Urea Nitrogen 27 MG/DL (7-18); Calcium 9.1 MG/DL (8.5-10.1); Estimated Glom Filtration Rate 43 ML/MIN; Glucose 119 MG/DL (74-106); Osmolality,Calculated 297.4 MOS/KG (273-304); Total Protein 7.2 G/DL (6.4-8.3)
[2020-01-15 03:53] LABS: Hypochromasia 2+; Polychromasia Few
[2020-01-15 03:54] LABS: Target Cells Few
[2020-01-15 03:55] LABS: Schistocytes Few
[2020-01-15 03:56] LABS: Platelet Estimate Normal
[2020-01-15] MEDS: DEXTROSE 5% NACL 0.45% 1,000 ML IV SCH ×3 (06:21→22:17)
[2020-01-15] MEDS: THIAMINE 100 MG TABLET PO SCH (09:23)
[2020-01-15] MEDS: FOLIC ACID 1 MG TABLET PO SCH (21:57)
[2020-01-16] MEDS: MEROPENEM 500 MG in SODIUM CHLORIDE 0.9% 100 ML IV SCH ×3 (01:49→17:44)
[2020-01-16] MEDS: DEXTROSE 5% NACL 0.45% 1,000 ML IV SCH (05:44)
[2020-01-16 06:24] LABS: Basophils # 0.1 10*3/uL (0.0-0.2); Basophils % 0.8 % (0.0-0.8); Eosinophils # 0.4 10*3/uL (0.0-0.87); Eosinophils % 3.1 % (0.00-10.9); Hematocrit 33.9 VOL% (42.0-52.0); Hemoglobin 10.2 GM/DL (14.0-18.0); Immature Granulocytes % 0.9 %; Immature Granulocytes Absolute 0.11 #; Lymphocytes # 1.6 10*3/uL (1.4-4.0); Lymphocytes % 13.2 % (21.2-54.2); Mean Corpuscular HGB Conc 30.1 GM/DL (32-36); Monocytes % 8.7 % (1.7-12.7); Neutrophils % 73.3 % (38.7-73.9); Platelet Count 349 T/CUMM (130-400); Red Blood Count 3.99 MC/CUMM (3.8-5.5); Red Cell Distribution Width 27.2 % (9.3-17.3)
[2020-01-16 06:38] LABS: Albumin 1.9 G/DL (3.4-5.0); Calcium 8.8 MG/DL (8.5-10.1); Osmolality,Calculated 290.7 MOS/KG (273-304); Total Protein 6.6 G/DL (6.4-8.3)
[2020-01-16 06:42] LABS: Hypochromasia 1+; Platelet Estimate Adequate
[2020-01-16 06:43] LABS: Microcytosis Slight
[2020-01-16] MEDS ORDERED: MAGNESIUM SULF RIDER 2 GM in PREMIX 1 EACH IV PRN (08:23)
[2020-01-16] MEDS: THIAMINE 100 MG TABLET PO SCH (10:51)
[2020-01-16] MEDS: POTASSIUM CHLORIDE 20 MEQ/15 ML UDCUP PO PRN ×3 (10:51→19:28)
[2020-01-16] MEDS: ZIPRASIDONE 20 MG/1 ML VIAL IM PRN (21:27)
[2020-01-16] MEDS: FOLIC ACID 1 MG TABLET PO SCH (21:33)
[2020-01-17] MEDS: MEROPENEM 500 MG in SODIUM CHLORIDE 0.9% 100 ML IV SCH ×3 (01:42→17:12)
[2020-01-17] MEDS: DEXTROSE 5% NACL 0.45% 1,000 ML IV SCH ×3 (03:50→08:58)
[2020-01-17] MEDS: THIAMINE 100 MG TABLET PO SCH (08:50)
[2020-01-17] MEDS: POTASSIUM CHLORIDE 20 MEQ/15 ML UDCUP PO PRN ×4 (09:25→17:16)
[2020-01-17] MEDS: ZIPRASIDONE 20 MG/1 ML VIAL IM PRN (10:00)
[2020-01-17] MEDS ORDERED: TUBERCULIN SKIN TEST 0.1 ML SYRINGE INTRADERM ONE (12:38)
[2020-01-17] MEDS: FOLIC ACID 1 MG TABLET PO SCH (21:14)
[2020-01-17] MEDS: POTASSIUM CHLORIDE 20 MEQ/15 ML UDCUP PO SCH (21:14)
[2020-01-18] MEDS: ZIPRASIDONE 20 MG/1 ML VIAL IM PRN (00:48)
[2020-01-18] MEDS: MEROPENEM 500 MG in SODIUM CHLORIDE 0.9% 100 ML IV SCH ×2 (00:55→09:19)
[2020-01-18 07:09] LABS: Basophils # 0.1 10*3/uL (0.0-0.2); Basophils % 0.6 % (0.0-0.8); Calcium 9.2 MG/DL (8.5-10.1); Eosinophils # 0.3 10*3/uL (0.0-0.87); Eosinophils % 2.2 % (0.00-10.9); Hematocrit 35.1 VOL% (42.0-52.0); Hemoglobin 10.5 GM/DL (14.0-18.0); Immature Granulocytes % 0.9 %; Lymphocytes # 1.9 10*3/uL (1.4-4.0); Lymphocytes % 16.3 % (21.2-54.2); Mean Corpuscular HGB Conc 29.9 GM/DL (32-36); Mean Corpuscular Volume 85.6 FL (87-102); Monocytes % 9.8 % (1.7-12.7); Neutrophils % 70.2 % (38.7-73.9); Osmolality,Calculated 292.3 MOS/KG (273-304); Platelet Count 430 T/CUMM (130-400); Red Cell Distribution Width 27.6 % (9.3-17.3); White Blood Count 11.7 T/CUMM (4-12)
[2020-01-18 07:35] LABS: Hypochromasia 1+; Microcytosis 1+; Platelet Estimate Adequate
[2020-01-18] MEDS: POTASSIUM CHLORIDE 20 MEQ/15 ML UDCUP PO SCH (09:21)
[2020-01-18] MEDS: THIAMINE 100 MG TABLET PO SCH (09:21)
[2020-01-18 14:44] LABS: Glucose,CSF 65 MG/DL (40-70)
[2020-01-18 15:16] LABS: Appearance,CSF Clear; Lymphocytes,CSF 100 %; Red Blood Cell,CSF < 1 C/CUMM; White Blood Cell,CSF < 1 C/CUMM
[2020-01-18] MEDS ORDERED: HALOPERIDOL 5 MG/ML AMP IV ONE ×2 (15:52→15:55)
[2020-01-18] MEDS: QUEtiapine 25 MG TABLET PO SCH ×2 (16:12→20:45)
[2020-01-18] MEDS: DEXTROSE 5% 1,000 ML IV SCH (18:29)
[2020-01-18] MEDS: FOLIC ACID 1 MG TABLET PO SCH (20:45)
[2020-01-18] MEDS ORDERED: LORazepam 2 MG/1 ML VIAL IV PRN (21:41)
[2020-01-19] MEDS: hydrALAZINE 20 MG/1 ML VIAL IV PRN ×2 (00:02→18:12)
[2020-01-19 06:29] LABS: Basophils # 0.1 10*3/uL (0.0-0.2); Basophils % 0.5 % (0.0-0.8); Eosinophils # 0.3 10*3/uL (0.0-0.87); Eosinophils % 1.8 % (0.00-10.9); Hematocrit 33.1 VOL% (42.0-52.0); Hemoglobin 10.3 GM/DL (14.0-18.0); Immature Granulocytes % 0.8 %; Immature Granulocytes Absolute 0.11 #; Lymphocytes # 1.6 10*3/uL (1.4-4.0); Lymphocytes % 10.7 % (21.2-54.2); Mean Corpuscular HGB Conc 31.1 GM/DL (32-36); Mean Corpuscular Volume 81.5 FL (87-102); Monocytes % 9.1 % (1.7-12.7); Neutrophils % 77.1 % (38.7-73.9); Platelet Count 502 T/CUMM (130-400); Red Blood Count 4.06 MC/CUMM (3.8-5.5); Red Cell Distribution Width 27.4 % (9.3-17.3); White Blood Count 14.5 T/CUMM (4-12)
[2020-01-19 06:47] LABS: Calcium 8.7 MG/DL (8.5-10.1); Osmolality,Calculated 279.4 MOS/KG (273-304)
[2020-01-19 07:18] LABS: Platelet Estimate Increased
[2020-01-19 07:19] LABS: Anisocytosis 1+; Hypochromasia Slight
[2020-01-19 07:20] LABS: Poikilocytosis Slight
[2020-01-19] MEDS ORDERED: ZIPRASIDONE 20 MG/1 ML VIAL IM PRN (07:53)
[2020-01-19] MEDS: DEXTROSE 5% 1,000 ML IV SCH ×2 (08:49→20:21)
[2020-01-19] MEDS: POTASSIUM CHLORIDE 20 MEQ/15 ML UDCUP PO SCH (08:49)
[2020-01-19] MEDS: THIAMINE 100 MG TABLET PO SCH (08:50)
[2020-01-19] MEDS: QUEtiapine 25 MG TABLET PO SCH ×2 (08:50→20:22)
[2020-01-19 13:39] LABS: HIV Antigen/Antibody Result Nonreactive (Nonreactive)
[2020-01-19] MEDS: carvediloL 6.25 MG TABLET PO SCH ×2 (16:36→20:22)
[2020-01-19] MEDS: FOLIC ACID 1 MG TABLET PO SCH (20:22)
[2020-01-20 05:46] LABS: Basophils # 0.1 10*3/uL (0.0-0.2); Basophils % 0.3 % (0.0-0.8); Eosinophils # 0.2 10*3/uL (0.0-0.87); Eosinophils % 1.2 % (0.00-10.9); Hemoglobin 10.2 GM/DL (14.0-18.0); Immature Granulocytes Absolute 0.15 #; Lymphocytes # 1.4 10*3/uL (1.4-4.0); Lymphocytes % 8.9 % (21.2-54.2); Mean Corpuscular HGB Conc 30.9 GM/DL (32-36); Mean Corpuscular Volume 82.3 FL (87-102); Monocytes % 10.6 % (1.7-12.7); Platelet Count 578 T/CUMM (130-400); Red Blood Count 4.01 MC/CUMM (3.8-5.5); Red Cell Distribution Width 27.1 % (9.3-17.3); White Blood Count 15.8 T/CUMM (4-12)
[2020-01-20 06:04] LABS: Osmolality,Calculated 261.7 MOS/KG (273-304)
[2020-01-20 07:27] LABS: Hypochromasia 3+; Microcytosis 2+
[2020-01-20 07:28] LABS: Platelet Estimate Increased; Polychromasia Slight; Schistocytes Few
[2020-01-20] MEDS ORDERED: ACETAMINOPHEN 650 MG SUPP RECTAL ONE (08:21)
[2020-01-20] MEDS: POTASSIUM CHLORIDE 20 MEQ/15 ML UDCUP PO SCH (08:56)
[2020-01-20] MEDS: THIAMINE 100 MG TABLET PO SCH (08:56)
[2020-01-20] MEDS: carvediloL 6.25 MG TABLET PO SCH ×2 (08:56→20:54)
[2020-01-20] MEDS: QUEtiapine 25 MG TABLET PO SCH ×2 (08:56→20:54)
[2020-01-20] MEDS: DEXTROSE 5% 1,000 ML IV SCH (08:57)
[2020-01-20] MEDS ORDERED: MEGESTROL ES 125 MG/ML 30 ML/BOTTLE PO SCH (09:00)
[2020-01-20 13:21] LABS: VDRL Spinal Fluid Negative (Negative)
[2020-01-20 13:33] LABS: Apearance,Urine CLEAR (Clear); Bacteria,Urine Occasional /HPF (Few); Bilirubin,Urine Negative (Negative); Blood, Urine Large mg/dL (Negative); Calcium Oxalate Crystals,Urine Occasional /HPF (Few); Glucose,Urine (UA) Negative (Negative); Ketones,Urine Negative (Negative); Nitrite,Urine Negative (Negative); Protein,Urine Negative; RBC,Urine 58 /HPF (0-4); Squamous Epithelial Cell,Urine Occasional /HPF (0-10); Urine Color Yellow (Yellow); Urine Specific Gravity 1.005 (1.001-1.035); Urine Urobilinogen < 2.0 EU/DL (0.2-1.0); WBC,Urine 2 /HPF (0-6)
[2020-01-20] MEDS: FOLIC ACID 1 MG TABLET PO SCH (20:54)
[2020-01-21] MEDS: THIAMINE 100 MG TABLET PO SCH (10:20)
[2020-01-21] MEDS: QUEtiapine 25 MG TABLET PO SCH (10:20)
[2020-01-21] MEDS: carvediloL 6.25 MG TABLET PO SCH (10:20)
[2020-01-21] MEDS: POTASSIUM CHLORIDE 20 MEQ/15 ML UDCUP PO SCH (10:24)
[2020-01-21 14:51] LABS: M. Tuberculosis PCR Result Negative (Negative); M. Tuberculosis PCR Source csf
[2020-01-21 19:46] VITALS: BP 143/74
[2020-01-23 12:46] LABS: West Nile Virus Ab, IgG, CSF Negative (Negative); West Nile Virus Ab, IgM, CSF Negative (Negative)
== END 2020-01-21 19:48 | disposition home health service (06) | DRG 871 ==
LOC: EDUNIT# → EDBD → N.ED 02:43 → SUPCPDRO 06:04 → SUATTDRO 06:04 → N.EDINP 06:04 → N.ICU 10:48 → N.TELES 01-05 13:47 → N.ICU 01-08 11:32 → N.TELEN 01-13 16:50 → N.4E 01-19 18:09
PROVIDERS: ADMIT Internal Medicine; ATTEND Internal Medicine

== ENCOUNTER 2020-05-24 20:00 | Inpatient (IN) ==
[2020-05-24] MEDS ORDERED: HYDROmorphone 2 MG/1 ML VIAL IV STA (20:14)
[2020-05-24] MEDS ORDERED: LACTATED RINGERS 1,000 ML IV STA (20:14)
[2020-05-24] MEDS ORDERED: DIPH/TET/ACEL PERT BOOSTER VACCINE 0.5 ML VIAL IM ONE (20:14)
[2020-05-24 20:31] LABS: Basophils # 0.1 10*3/uL (0.0-0.2); Basophils % 0.7 % (0.0-0.8); Eosinophils # 0.2 10*3/uL (0.0-0.87); Hematocrit 28.1 VOL% (42.0-52.0); Immature Granulocytes % 0.4 %; Immature Granulocytes Absolute 0.03 #; Lymphocytes # 2.8 10*3/uL (1.4-4.0); Lymphocytes % 37.8 % (21.2-54.2); Mean Platelet Volume 8.6 FL (9.6-12.0); Monocytes % 9.9 % (1.7-12.7); Neutrophils % 48.2 % (38.7-73.9); Platelet Count 225 T/CUMM (130-400); Red Blood Count 4.13 MC/CUMM (3.8-5.5); Red Cell Distribution Width 18.6 % (9.3-17.3); White Blood Count 7.4 T/CUMM (4-12)
[2020-05-24 20:57] LABS: Alanine Aminotransferase 22 U/L (16-61); Albumin 3.5 G/DL (3.4-5.0); Alkaline Phosphatase 85 U/L (45-117); Amylase 89 U/L (25-115); Aspartate Amino Transferase 36 U/L (0-37); Bilirubin,Total < 0.39 MG/DL (0.2-1.0); Blood Urea Nitrogen 6 MG/DL (7-18); Calcium 8.8 MG/DL (8.5-10.1); Estimated Glom Filtration Rate 122 ML/MIN; Glucose 99 MG/DL (74-106); Osmolality,Calculated 278.3 MOS/KG (273-304); Total Protein 7.6 G/DL (6.4-8.3)
[2020-05-24 21:45] LABS: Bacteria,Urine Occasional /HPF (Few); Bilirubin,Urine Negative (Negative); Blood, Urine Small mg/dL (Negative); Glucose,Urine (UA) Negative (Negative); Hyaline Casts,Urine 1 /LPF (0-3); Ketones,Urine Negative (Negative); Mucus,Urine Occasional /LPF (Occasional); Nitrite,Urine Negative (Negative); Protein,Urine Negative; RBC,Urine 5 /HPF (0-4); Squamous Epithelial Cell,Urine Occasional /HPF (0-10); Urine Appearance CLEAR (Clear); Urine Color Straw (Yellow); Urine Specific Gravity 1.038 (1.001-1.035); Urine Urobilinogen < 2.0 EU/DL (0.2-1.0); WBC,Urine 2 /HPF (0-6)
[2020-05-24 21:53] LABS: Barbiturates Screen,Urine Negative (Negative); Benzodiazepines Screen,Urine Negative (Negative); Cannabinoid Screen,Urine Positive (Negative); Opiate Screen,Urine Positive (Negative); Phencyclidine Screen,Urine Negative (Negative)
[2020-05-24] MEDS ORDERED: ONDANSETRON 4 MG/2 ML VIAL IV PRN (21:59)
[2020-05-24] MEDS ORDERED: ACETAMINOPHEN 325 MG TABLET PO PRN (21:59)
[2020-05-24] MEDS ORDERED: MAGNESIUM HYDROXIDE SUSP 30 ML UDCUP PO PRN (21:59)
[2020-05-25] MEDS: HYDROmorphone 2 MG/1 ML VIAL IV PRN ×2 (00:15→03:51)
[2020-05-25] MEDS: SODIUM CHLORIDE 0.9% 1,000 ML IV SCH ×2 (00:16→08:42)
[2020-05-25 05:58] LABS: Basophils % 0.2 % (0.0-0.8); Eosinophils % 0.3 % (0.00-10.9); Hematocrit 25.5 VOL% (42.0-52.0); Hemoglobin 8.3 GM/DL (14.0-18.0); Immature Granulocytes % 0.3 %; Immature Granulocytes Absolute 0.03 #; Lymphocytes # 1.3 10*3/uL (1.4-4.0); Lymphocytes % 14.1 % (21.2-54.2); Mean Corpuscular HGB Conc 32.5 GM/DL (32-36); Mean Corpuscular Volume 67.5 FL (87-102); Mean Platelet Volume 9.1 FL (9.6-12.0); Monocytes % 10.8 % (1.7-12.7); Neutrophils % 74.3 % (38.7-73.9); Platelet Count 221 T/CUMM (130-400); Red Blood Count 3.78 MC/CUMM (3.8-5.5); Red Cell Distribution Width 18.6 % (9.3-17.3); White Blood Count 9.3 T/CUMM (4-12)
[2020-05-25 06:33] LABS: Albumin 3.4 G/DL (3.4-5.0); Bilirubin,Total 0.5 MG/DL (0.2-1.0); Calcium 8.6 MG/DL (8.5-10.1); Osmolality,Calculated 274.4 MOS/KG (273-304); Total Protein 6.8 G/DL (6.4-8.3)
[2020-05-25] MEDS ORDERED: BACITRACIN OINT 0.9 GM PACK TOP ONE (06:53)
[2020-05-25] MEDS ORDERED: BUPIVACAINE MPF 0.25% 30 ML VIAL ONE (06:53)
[2020-05-25] MEDS ORDERED: SODIUM CHLORIDE 0.9% 1,000 ML IV PRN (07:54)
[2020-05-25] MEDS ORDERED: MORPHINE 4 MG/1 ML VIAL IV PRN ×2 (07:55)
[2020-05-25] MEDS ORDERED: diphenhydrAMINE CAP 25 MG CAPSULE PO PRN (07:55)
[2020-05-25] MEDS ORDERED: ZALEPLON 5 MG CAPSULE PO PRN (07:55)
[2020-05-25] MEDS ORDERED: ONDANSETRON 4 MG/2 ML VIAL IV PRN (07:55)
[2020-05-25] MEDS ORDERED: ceFAZolin 1,000 MG VIAL ONE (08:08)
[2020-05-25] MEDS ORDERED: LORazepam 2 MG/1 ML VIAL IV PRN (08:11)
[2020-05-25] MEDS ORDERED: propofoL 200 MG/20 ML VIAL IV ONE (09:40)
[2020-05-25] MEDS ORDERED: SEVOFLURANE 1 UNIT/15 MINUTE INH ONE (09:40)
[2020-05-25] MEDS ORDERED: LIDOCAINE 2% 5 ML VIAL ONE (09:40)
[2020-05-25] MEDS ORDERED: SUCCINYLCHOLINE 200 MG/10 ML VIAL ONE (09:41)
[2020-05-25] MEDS ORDERED: MIDAZOLAM 2 MG/2 ML VIAL ONE (09:41)
[2020-05-25] MEDS ORDERED: DEXAMETHASONE 4 MG/1 ML VIAL ONE (09:41)
[2020-05-25] MEDS ORDERED: ACETAMINOPHEN 1,000 MG/100 ML VIAL IV ONE (09:41)
[2020-05-25] MEDS ORDERED: LACTATED RINGERS 1,000 ML IV ONE (09:41)
[2020-05-25] MEDS ORDERED: ONDANSETRON 4 MG/2 ML VIAL ONE (09:41)
[2020-05-25] MEDS ORDERED: fentaNYL 100 MCG/2 ML VIAL ONE (09:41)
[2020-05-25] MEDS ORDERED: MAGNESIUM SULF RIDER 4 GM in PREMIX 1 EACH IV PRN (09:44)
[2020-05-25] MEDS ORDERED: MAGNESIUM SULF RIDER 2 GM in PREMIX 1 EACH IV PRN (09:44)
[2020-05-25] MEDS: DOCUSATE SODIUM 100 MG CAPSULE PO SCH ×2 (11:06→20:43)
[2020-05-25] MEDS: TAMSULOSIN 0.4 MG CAPSULE PO SCH ×2 (11:06→20:43)
[2020-05-25] MEDS: FOLIC ACID 1 MG TABLET PO SCH (11:06)
[2020-05-25] MEDS: carvediloL 6.25 MG TABLET PO SCH ×2 (11:06→20:43)
[2020-05-25] MEDS: MULTIVITAMIN (CENTRUM) TABLET PO SCH (11:06)
[2020-05-25] MEDS: PANTOPRAZOLE 40 MG VIAL IV SCH (11:07)
[2020-05-25] MEDS: THIAMINE 100 MG TABLET PO SCH (11:07)
[2020-05-25] MEDS: ceFAZolin 1,000 MG in SYRINGE 1 EACH IV SCH ×2 (14:13→20:42)
[2020-05-25] MEDS ORDERED: TUBERCULIN SKIN TEST 0.1 ML SYRINGE INTRADERM ONE (15:00)
[2020-05-25] MEDS: LORazepam 1 MG TABLET PO SCH ×2 (15:01→22:59)
[2020-05-25] MEDS ORDERED: THIAMINE INJ 100 MG, FOLIC ACID INJ 1 MG, MAGNESIUM SULF INJ 2 GM, MULTIVITAMIN INJ 10 ... IV ONE (15:33)
[2020-05-25] MEDS: POTASSIUM CHLORIDE INJ 40 MEQ in LACTATED RINGERS 1,000 ML IV SCH ×2 (15:41→21:50)
[2020-05-25] MEDS: QUEtiapine 25 MG TABLET PO SCH (22:43)
[2020-05-26] MEDS: FONDAPARINUX 2.5 MG/0.5 ML SYRINGE SUBCUT SCH (01:40)
[2020-05-26] MEDS: POTASSIUM CHLORIDE INJ 40 MEQ in LACTATED RINGERS 1,000 ML IV SCH ×2 (01:45→15:04)
[2020-05-26] MEDS: LORazepam 1 MG TABLET PO SCH ×2 (05:25→17:08)
[2020-05-26 06:15] LABS: Basophils % 0.1 % (0.0-0.8); Hematocrit 25.1 VOL% (42.0-52.0); Hemoglobin 8.2 GM/DL (14.0-18.0); Immature Granulocytes % 0.5 %; Immature Granulocytes Absolute 0.05 #; Lymphocytes # 1.3 10*3/uL (1.4-4.0); Lymphocytes % 12.8 % (21.2-54.2); Mean Corpuscular HGB Conc 32.7 GM/DL (32-36); Mean Corpuscular Volume 70.9 FL (87-102); Mean Platelet Volume 9.3 FL (9.6-12.0); Monocytes % 12.5 % (1.7-12.7); Neutrophils % 74.1 % (38.7-73.9); Platelet Count 174 T/CUMM (130-400); Red Blood Count 3.54 MC/CUMM (3.8-5.5); Red Cell Distribution Width 21.1 % (9.3-17.3); White Blood Count 10.5 T/CUMM (4-12)
[2020-05-26 06:25] LABS: Calcium 8.6 MG/DL (8.5-10.1); Osmolality,Calculated 266.1 MOS/KG (273-304)
[2020-05-26] MEDS: MAGNESIUM HYDROXIDE SUSP 30 ML UDCUP PO SCH ×2 (08:07→15:03)
[2020-05-26] MEDS: carvediloL 6.25 MG TABLET PO SCH ×2 (08:08→20:47)
[2020-05-26] MEDS: QUEtiapine 25 MG TABLET PO SCH ×2 (08:08→20:47)
[2020-05-26] MEDS: TAMSULOSIN 0.4 MG CAPSULE PO SCH ×2 (08:08→20:47)
[2020-05-26] MEDS: THIAMINE 100 MG TABLET PO SCH (08:09)
[2020-05-26] MEDS: DOCUSATE SODIUM 100 MG CAPSULE PO SCH ×2 (08:09→20:46)
[2020-05-26] MEDS: amLODIPine 5 MG TABLET PO SCH (08:10)
[2020-05-26] MEDS: FOLIC ACID 1 MG TABLET PO SCH (08:10)
[2020-05-26] MEDS: PANTOPRAZOLE 40 MG VIAL IV SCH (08:14)
[2020-05-26] MEDS: MULTIVITAMIN (CENTRUM) TABLET PO SCH (08:44)
[2020-05-27] MEDS: POTASSIUM CHLORIDE INJ 40 MEQ in LACTATED RINGERS 1,000 ML IV SCH ×3 (01:27→22:51)
[2020-05-27] MEDS: FONDAPARINUX 2.5 MG/0.5 ML SYRINGE SUBCUT SCH (01:30)
[2020-05-27 04:58] LABS: Basophils % 0.4 % (0.0-0.8); Eosinophils # 0.1 10*3/uL (0.0-0.87); Eosinophils % 0.7 % (0.00-10.9); Hematocrit 25.3 VOL% (42.0-52.0); Hemoglobin 8.2 GM/DL (14.0-18.0); Lymphocytes # 2.3 10*3/uL (1.4-4.0); Lymphocytes % 22.6 % (21.2-54.2); Mean Corpuscular HGB Conc 32.4 GM/DL (32-36); Mean Corpuscular Volume 71.7 FL (87-102); Mean Platelet Volume 9.3 FL (9.6-12.0); Monocytes % 11.3 % (1.7-12.7); Platelet Count 188 T/CUMM (130-400); Red Blood Count 3.53 MC/CUMM (3.8-5.5); Red Cell Distribution Width 21.7 % (9.3-17.3); White Blood Count 10.4 T/CUMM (4-12)
[2020-05-27] MEDS: LORazepam 1 MG TABLET PO SCH (05:07)
[2020-05-27 05:19] LABS: Calcium 8.4 MG/DL (8.5-10.1); Osmolality,Calculated 277.3 MOS/KG (273-304)
[2020-05-27] MEDS: MAGNESIUM HYDROXIDE SUSP 30 ML UDCUP PO SCH ×2 (08:47→15:03)
[2020-05-27] MEDS: DOCUSATE SODIUM 100 MG CAPSULE PO SCH ×2 (08:48→21:52)
[2020-05-27] MEDS: QUEtiapine 25 MG TABLET PO SCH ×2 (08:48→21:52)
[2020-05-27] MEDS: TAMSULOSIN 0.4 MG CAPSULE PO SCH ×2 (08:48→21:52)
[2020-05-27] MEDS: THIAMINE 100 MG TABLET PO SCH (08:48)
[2020-05-27] MEDS: carvediloL 6.25 MG TABLET PO SCH ×2 (08:49→21:52)
[2020-05-27] MEDS: amLODIPine 5 MG TABLET PO SCH (08:49)
[2020-05-27] MEDS: FOLIC ACID 1 MG TABLET PO SCH (08:49)
[2020-05-27] MEDS: PANTOPRAZOLE 40 MG VIAL IV SCH (08:56)
[2020-05-27] MEDS: MULTIVITAMIN (CENTRUM) TABLET PO SCH (09:53)
[2020-05-28] MEDS: FONDAPARINUX 2.5 MG/0.5 ML SYRINGE SUBCUT SCH (02:49)
[2020-05-28] MEDS: LORazepam 1 MG TABLET PO SCH ×2 (06:31→11:24)
[2020-05-28 07:16] LABS: Basophils # 0.1 10*3/uL (0.0-0.2); Basophils % 0.4 % (0.0-0.8); Eosinophils # 0.3 10*3/uL (0.0-0.87); Eosinophils % 2.8 % (0.00-10.9); Hemoglobin 8.4 GM/DL (14.0-18.0); Immature Granulocytes % 1.3 %; Immature Granulocytes Absolute 0.14 #; Lymphocytes # 2.4 10*3/uL (1.4-4.0); Mean Corpuscular HGB Conc 32.3 GM/DL (32-36); Mean Corpuscular Volume 72.4 FL (87-102); Monocytes % 12.8 % (1.7-12.7); Neutrophils % 61.7 % (38.7-73.9); Platelet Count 226 T/CUMM (130-400); Red Blood Count 3.59 MC/CUMM (3.8-5.5); Red Cell Distribution Width 21.8 % (9.3-17.3); White Blood Count 11.2 T/CUMM (4-12)
[2020-05-28 07:20] LABS: Calcium 9.2 MG/DL (8.5-10.1)
[2020-05-28 07:46] LABS: % Iron Saturation 6.9 % (18-50)
[2020-05-28 08:51] LABS: Folate 20.1 NG/ML (5.4-24.0)
[2020-05-28] MEDS ORDERED: FOLIC ACID 1 MG TABLET PO SCH (09:00)
[2020-05-28] MEDS ORDERED: IRON SUCROSE 300 MG in SODIUM CHLORIDE 0.9% 100 ML IV ONE (09:00)
[2020-05-28] MEDS: THIAMINE 100 MG TABLET PO SCH (09:19)
[2020-05-28] MEDS: amLODIPine 5 MG TABLET PO SCH (09:19)
[2020-05-28] MEDS: DOCUSATE SODIUM 100 MG CAPSULE PO SCH (09:20)
[2020-05-28] MEDS: MULTIVITAMIN (CENTRUM) TABLET PO SCH (09:20)
[2020-05-28] MEDS: carvediloL 6.25 MG TABLET PO SCH (09:20)
[2020-05-28] MEDS: MAGNESIUM HYDROXIDE SUSP 30 ML UDCUP PO SCH (09:23)
[2020-05-28] MEDS: PANTOPRAZOLE 40 MG VIAL IV SCH (09:25)
[2020-05-28] MEDS: QUEtiapine 25 MG TABLET PO SCH (09:36)
[2020-05-28] MEDS ORDERED: LORazepam 1 MG TABLET PO PRN (10:00)
[2020-05-28] MEDS: TAMSULOSIN 0.4 MG CAPSULE PO SCH (11:24)
[2020-05-28 11:56] VITALS: BP 122/59
== END 2020-05-28 15:40 | disposition home health service (06) | DRG 481 ==
LOC: EDBD → EDUNIT# → N.EDINP 20:00 → N.ED 20:00 → N.EDINP 22:39 → N.3E 22:43
PROVIDERS: ADMIT Surgery; ATTEND Surgery